=== PATIENT | male | born 1980 | race Two or more races ===

== ENCOUNTER 2017-07-26 12:49 | Outpatient (CLI) ==
[2016-06-09 19:29] VITALS: BMI 23.0
[2017-07-26 13:01] LABS: FLU INTERNAL QC INTERNAL QC VALID; MOLECULAR FLU A POSITIVE (NEGATIVE); MOLECULAR FLU B NEGATIVE (NEGATIVE)
== END 2017-07-26 12:50 | disposition home or self-care (01) ==
LOC: LAB 12:49
PROVIDERS: ATTEND Emergency Medicine
DX: J02.9 Acute pharyngitis, unspecified (principal); R50.9 Fever, unspecified
CPT/HCPCS: 87651; 87804; 87880

== ENCOUNTER 2017-11-09 14:26 | Emergency (ER) ==
[2017-11-09 14:32] VITALS: BP 135/76; TEMP 97.4; BMI 22.1
--- NOTE | 2017-11-09 14:51 | ED.PDOC ---
General ED Provider: Dr. EZEQUIEL ROBLEDO Chief Complaint: Fever Stated Complaint: Cough and congestion. Flu symptoms and when coughing felt strain in low back with pain. Cough productive of brownish secretions. Denies fever or night sweats Time Seen by Physician: 15:00 Mode of Arrival: Walk-In Information Source: Patient Exam Limitations: No limitations Primary Care Provider: ABI YAP Nursing and Triage Documentation Reviewed and Agree: Yes Reviewed sepsis parameters & appropriate labs ordered?: Yes System Inflammatory Response Syndrome: Not Applicable Sepsis Protocol: For patient's 13 years and over: Temp is 96.8 and below OR 101 and greater Pulse >90 BPM Resp >20/minute Acutely Altered Mental Status Are patient's symptoms suggestive of a new infection, such as: -Pneumonia -Skin, Soft Tissue -Endocarditis -UTI -Bone, Joint Infection -Implantable Device -Acute Abdominal Infection -Wound Infection -Meningitis -Blood Stream Catheter Infection -Unknown System Inflammatory Response Syndrome: Not Applicable Respiratory Complaint Exam - Respiratory Complaint/Exam Symptoms Are: Still present Timing: Intermittent Initial Severity: Mild Current Severity: None Location: Throat, Chest Character: Reports: Productive cough Aggravating: Reports: Exertion, URI, Passive smoke exposure Alleviating: Reports: None Associated Signs and Symptoms: Reports: Nasal congestion, Hoarseness, Sore throat. Denies: Rapid breathing, Dyspnea, Fever, Chills, Pleuritic chest pain, Wheezing, Calf swelling, Edema, URI Related History: Reports: Similar episode History of Healthcare-Acquired Pneumonia: No Related Surgical History: Reports: None Pulmonary Embolism Risk Factors: None Cardiac Risk Factors: Reports: None Pseudomonas Risk Factors: Reports: None Tuberculosis Risk Factors: Reports: None Status Asthmaticus Risk Factors: Reports: None Home Oxygen Use: No Recent Stress Test: No Recent Echo/LV Function: No Current Antibiotic Use: No Current Asthma Medication Use: No Respiratory Distress: None Inadequate Respiratory Effort: No Dysphagia Present: No Stridor Present: No JVD Present: No Retractions: Not Present Diminished Breath Sounds: No Sinus Tenderness: None Grunting Respirations: No Kussmaul Respirations: No Differential Diagnoses: URI, Influenza Review of Systems - Review Of Systems Constitutional: Reports: No symptoms Eyes: Reports: No symptoms Ears, Nose, Mouth, Throat: Reports: No symptoms Respiratory: Reports: No symptoms, Cough, Short of air Cardiac: Reports: No symptoms GI: Reports: No symptoms : Reports: No symptoms Musculoskeletal: Reports: No symptoms Skin: Reports: No symptoms Neurological: Reports: No symptoms Endocrine: Reports: No symptoms Hematologic/Lymphatic: Reports: No symptoms All Other Systems: Reviewed and Negative Past Medical History - Past Medical History Endocrine: Reports: None Cardiovascular: Reports: None Respiratory: Reports: None Hematological: Reports: None Gastrointestinal: Reports: None Genitourinary: Reports: None Neuro/Psych: Reports: None Musculoskeletal: Reports: None Cancer: Reports: None - Surgical History General Surgical History: Reports: Unknown - Family History Family History: Reports: Unknown - Social History Smoking Status: Current every day smoker Hx Substance Use: No (Marijuana) Alcohol Screening: Occasionally - Immunizations Tetanus Shot up to Date: Yes Physical Exam - Physical Exam Appearance: Well-appearing, Thin Ill-appearing: Mild Pain Distress: Mild Eyes: JULIAN, EOMI, Conjunctiva clear ENT: Ears normal, Nose normal, Oropharynx normal Respiratory: Airway patent, Breath sounds clear, Breath sounds equal, Respirations nonlabored Cardiovascular: RRR, Pulses normal, No rub, No murmur GI/: Soft, Nontender, No masses, Bowel sounds normal, No Organomegaly Musculoskeletal: Normal strength, ROM intact, No edema, No calf tenderness, Limited ROM (low back lumbar spinal tenderness) Skin: Warm, Dry, Normal color Neurological: Sensation intact, Motor intact, Reflexes intact, Cranial nerves intact, Alert, Oriented Psychiatric: Affect appropriate, Mood appropriate Interpretation - Radiology Interpretation Radiology Results: Negative Exam Interpreted: CXR Re-Evaluation - Re-Evaluation Time of Re-Evaluation: 16:00 Status: Improved Vital Signs Stable: Yes Appearance: NAD Lungs: Clear Skin: Warm and Dry Neuro: Alert and Oriented X3 CV: RRR Critical Care Note - Critical Care Note Total Time (mins): 0 Course - Course Orders, Labs, Meds: Lab Review 11/09/17 15:22 Influ A Molecular Assay Negative by naat Influ B Molecular Assay Negative by naat Orders Category Date Time Status FLU A & B MOLECULAR [FLU A/B MOLECULAR] Stat LAB 11/09/17 15:22 Completed RAPID STREP SCREEN [MOLECULAR GROUP A STREP] Stat LAB 11/09/17 15:22 Completed Ibuprofen [Motrin] MEDS 11/09/17 15:14 Discontinued 600 mg PO ONCE STA CHEST, 2 VIEWS PA & LAT Stat RADS 11/09/17 15:12 Taken Medications Discontinued Medications Generic Name Dose Route Start Last Admin Trade Name Ranjan PRN Reason Stop Dose Admin Ibuprofen 600 mg 11/09/17 15:14 11/09/17 15:37 Motrin PO 11/09/17 15:15 600 mg ONCE STA Administration Vital Signs: Temp Pulse Resp BP Pulse Ox 11/09/17 14:28 97.4 F L 61 16 135/76 98 Departure - Departure Time of Disposition: 16:10 Disposition: HOME SELF-CARE Discharge Problem: URI (upper respiratory infection), Low back pain Instructions: Upper Respiratory Infection (ED), Low Back Strain (ED) Condition: Good Pt referred to PMD for follow-up: Yes (1 wk) IPMP verified?: No Allergies/Adverse Reactions: Allergies No Known Allergies Allergy (Verified 11/09/17 14:35) Home Medications: Ambulatory Orders 1 [No Reported Medications] 06/09/16 Disposition Discussed With: Patient
[2017-11-09] MEDS ORDERED: MOTRIN PO STA (15:14)
--- NOTE | 2017-11-10 07:22 | DI ---
EXAM: PA and lateral views the chest HISTORY: Cough and congestion COMPARISON: None available FINDINGS: No focal consolidation, pleural effusion or pneumothorax is seen. The cardiomediastinal silhouette i s within normal limits. IMPRESSION: No acute cardiopulmonary findings.
== END 2017-11-09 16:11 | disposition home or self-care (01) ==
LOC: ED 14:26
DX: J06.9 Acute upper respiratory infection, unspecified (principal); M54.5 Low back pain; R05 Cough; R06.02 Shortness of breath; F17.210 Nicotine dependence, cigarettes, uncomplicated
CPT/HCPCS: 87502; 87651; 99284

== ENCOUNTER 2018-01-29 07:06 | Emergency (ER) ==
--- NOTE | 2018-01-29 07:14 | ED.PDOC ---
General ED Provider: Dr. KEO PACKER Chief Complaint: Back Pain Stated Complaint: back pain Time Seen by Physician: 07:10 Mode of Arrival: Walk-In Information Source: Patient Exam Limitations: No limitations Nursing and Triage Documentation Reviewed and Agree: Yes Does patient meet sepsis criteria?: Yes If yes, has appropriate treatment been initiated?: No System Inflammatory Response Syndrome: Not Applicable Sepsis Protocol: For patient's 13 years and over: Temp is 96.8 and below OR 101 and greater Pulse >90 BPM Resp >20/minute Acutely Altered Mental Status Are patient's symptoms suggestive of a new infection, such as: -Pneumonia -Skin, Soft Tissue -Endocarditis -UTI -Bone, Joint Infection -Implantable Device -Acute Abdominal Infection -Wound Infection -Meningitis -Blood Stream Catheter Infection -Unknown Musculoskeletal Complaint Exam - Back Pain Complaint/Exam Mechanism of Injury: Reports: No known trauma Onset/Duration: 1 day Symptoms Are: Still present Timing: Constant Episodes Lasting: Hours Initial Severity: Mild Current Severity: Mild Location: Reports: Discrete Character: Reports: Aching Aggravating: Reports: None Alleviating: Reports: None Associated Signs and Symptoms: Denies: Swelling, Redness, Bruising, Fever, Weakness, Numbness, Tingling, Abdominal pain, Flank pain, Bladder incontinence, Bowel incontinence, Weight loss, Pain with weight bearing TAD Risk Factors: Reports: None AAA Risk Factors: Reports: None Cauda Equina Risk Factors: Reports: None Epidural Abcess Risk Factors: Reports: None Related Surgical History: Reports: None Focal Tenderness: No Paraspinal Muscle Tenderness: No Paraspinal Muscle Spasm: No Scoliosis: No Lordosis: No Kyphosis: No SLR Test: Right Negative, Left Negative Hip Motion Testing Pain: Right Negative, Left Negative Focal Weakness: Present: None Focal Sensory Loss: Present: None Gait: Present: Normal Differential Diagnoses: Strain, Sprain Review of Systems - Review Of Systems Constitutional: Reports: No symptoms Eyes: Reports: No symptoms Ears, Nose, Mouth, Throat: Reports: No symptoms Respiratory: Reports: No symptoms Cardiac: Reports: No symptoms GI: Reports: No symptoms : Reports: No symptoms Musculoskeletal: Reports: Back pain Skin: Reports: No symptoms Neurological: Reports: No symptoms Endocrine: Reports: No symptoms Hematologic/Lymphatic: Reports: No symptoms All Other Systems: Reviewed and Negative Past Medical History - Past Medical History Previously Healthy: Yes Endocrine: Reports: None Cardiovascular: Reports: None Respiratory: Reports: None Hematological: Reports: None Gastrointestinal: Reports: None Genitourinary: Reports: None Neuro/Psych: Reports: None Musculoskeletal: Reports: None Cancer: Reports: None - Surgical History General Surgical History: Reports: Unknown - Family History Family History: Reports: Unknown - Social History Smoking Status: Current every day smoker Hx Substance Use: No (Marijuana) Alcohol Screening: Occasionally Physical Exam - Physical Exam Appearance: Well-appearing, No pain distress, Well-nourished Eyes: JULIAN, EOMI, Conjunctiva clear ENT: Ears normal, Nose normal, Oropharynx normal Respiratory: Airway patent, Breath sounds clear, Breath sounds equal, Respirations nonlabored Cardiovascular: RRR, Pulses normal, No rub, No murmur GI/: Soft, Nontender, No masses, Bowel sounds normal, No Organomegaly Musculoskeletal: Normal strength, ROM intact, No edema, No calf tenderness Skin: Warm, Dry, Normal color Neurological: Sensation intact, Motor intact, Reflexes intact, Cranial nerves intact, Alert, Oriented Psychiatric: Affect appropriate, Mood appropriate Critical Care Note - Critical Care Note Total Time (mins): 0 Course - Course Vital Signs: Temp Pulse Resp BP Pulse Ox 01/29/18 07:07 97.2 F L 75 16 118/79 97 Departure - Departure Time of Disposition: 07:23 (seen with sreekanth) Disposition: HOME SELF-CARE Discharge Problem: Backache Instructions: Lower Back Exercises (ED) Condition: Good Pt referred to PMD for follow-up: Yes IPMP verified?: No Additional Instructions: Please call your Family Physician as soon as possible to schedule a follow-up appointment. Allergies/Adverse Reactions: Allergies No Known Allergies Allergy (Verified 01/29/18 07:10) Home Medications: Ambulatory Orders 1 [No Reported Medications] 01/29/18
[2018-01-29 07:22] VITALS: BP 118/79; TEMP 97.2; BMI 21.7
== END 2018-01-29 07:25 | disposition home or self-care (01) ==
LOC: ED 07:06
DX: M54.9 Dorsalgia, unspecified (principal); F17.210 Nicotine dependence, cigarettes, uncomplicated
CPT/HCPCS: 99283